=== PATIENT | female | born 1930 | race Caucasian/White ===

== ENCOUNTER → 2017-02-07 | Outpatient (CLI) | payer OTHER ==
[~2017-02-07] MED LIST: CENTRUM SILVER1 EAC4 PO; COREG3.125 MG PO; DIPHENHIST50 MG PO; DOXYCYCLINE 10100 MG PO; ECOTRIN325 MG PO; ELIQUIS2.5 MG PO; FAMOTIDINE 20 M20 MG PO; K-DUR 20 MEQ T20 MEQ PO; LASIX 40 MG TAB40 M2 PO; LEVOTHYROXIN0.075 MG PO; LEVOTHYROXINE0.05 MG PO; LISINOPRIL2.5 MG PO; MUCINEX TA600 MG/TA2 PO; PREDNISONE 20 M20 M1 PO; SIMVASTATIN20 MG PO; SYNTHROID; VANCOMYCIN100 MG/M1 PO; VENTOLIN HFA 1818 GM INH; VICODIN 5-5001 EACH PO; VITAMIN D1000 UNIT PO; XARELTO1 EACH PO
== END ==
LOC: RAD 01:16
DX: C50.911 Malignant neoplasm of unspecified site of right female breast (principal)